=== PATIENT | male | born 1990 ===

== ENCOUNTER 2022-04-24 08:36 | Emergency (ER) | payer BC ==
[2022-04-24] MEDS ORDERED: Sodium Chloride 0.9% 1,000 ML IV ONE (08:55)
[2022-04-24] MEDS ORDERED: Famotidine 20 MG/2 ML SDV IVPUSH ONE (08:55)
[2022-04-24] MEDS ORDERED: Ondansetron 4 MG/2 ML SDV IVPUSH ONE (08:55)
[2022-04-24] MEDS ORDERED: Alum Hydro/Mag Hydro/Simeth XS 15 ML, Lidocaine 2% 5 ML PO ONE ×2 (08:56)
[2022-04-24 09:40] LABS: BLOOD UREA NITROGEN,BUN 16 mg/dL (7.0-18.0); CARBON DIOXIDE,CO2 23.9 mmol/L (21.0-32.0); CHLORIDE,CL 106 mmol/L (98-107); GLUCOSE RANDOM 105 mg/dL (74-106); LIPASE 83 U/L (73-393); SODIUM,NA 140 mmol/L (136-148)
[2022-04-24] MEDS ORDERED: Iodixanol 652 MG/ML 100 ML Bottle IVPUSH ONE (10:10)
[2022-04-24] MEDS ORDERED: HYDROmorphone 1 MG/ML Syringe IVPUSH ONE (10:21)
== END 2022-04-24 11:17 | disposition home or self-care (01) ==
LOC: MW.ED 08:36
DX: R10.13 Epigastric pain (principal)
CPT/HCPCS: 36415; 74177; 74177-26; 80053; 83690; 83735; 85025; 96374; 96375; 99284; 99284-25; A9270-GY; J1170; J2405; J3490; J7030